=== PATIENT | female | born 1955 | race Caucasian/White ===

== ENCOUNTER 2017-01-29 16:08 | Observation (INO) | payer OTHER ==
[~2017-01-29] VITALS: Ht 157.5 cm; Wt 60.4 kg
[2017-01-29 17:16] VITALS: BP 104/62
[2017-01-29] MEDS ORDERED: SULINDAC150 MG PO (17:41)
[2017-01-29] MEDS ORDERED: BENAZEPRIL HYDR20 MG PO (17:42)
[2017-01-29] MEDS ORDERED: PROZAC 20MG CAP20 MG PO (17:43)
[2017-01-29] MEDS ORDERED: XYZAL5 MG PO (17:44)
[2017-01-29] MEDS ORDERED: SINGULAIR10 MG PO (17:45)
[2017-01-29] MEDS ORDERED: MOTRIN 600MG.600 MG PO (17:46)
[2017-01-29] MEDS ORDERED: VITAMIN D32000 UNI1 PO (17:47)
[2017-01-29] MEDS ORDERED: FLUTICASONE 50M16 GM (17:47)
--- NOTE | 2017-01-29 17:59 | CONSULT NOTE ---
Consultation findings: Referring physician: Dr. Carroll Date of examination: 01/29/17 Time of examination: 1725 Exam findings: The patient is a 61-year-old female who is a history of 2 weeks LEFT knee pain and swelling. She denies known history of injury. She denies history of diabetes and history of gout. She has had no previous problems with the knee and states that she has not had trauma of any recent origin. She has had a lesion on her LEFT lower leg frozen by a handcrew foreman some 2 years ago and has not seen a handcrew foreman in follow-up. There is erythema and scaliness around this lesion but no evidence of ascending cellulitis. She has had no other evidence of infection. She denies recurrent fever and chills but states that she has had one day where she did feel warmer and then colder. She's had no upper respiratory infections. She states she has had a Medrol Dosepak recently and felt improved with this but this "wore off" and her pain returned to baseline within the Medrol Dosepak was finished. She has had no injections and has had no antibiotics. She's had progressive difficulty with weightbearing. She presented to Dr. Carroll's office today and was sent for admission. She denies paresthesias/numbness/tingling and denies ecchymosis. She has had an effusion in the knee but no lymphedema. Examination shows a very limited range of motion secondary to pain. It is essentially 20 degrees to 45 degrees. The knee is roughly ligamentously stable but exam is quite limited secondary to her pain. There is a 3+ effusion but no areas of redness and warmth or cellulitis in the knee itself. There is a 2-3 cm diameter area of erythema associated with scaly desquamation and the lower LEFT leg in the area where the patient states a dermatologic lesion was frozen 2 years ago. No x-rays available. Under verbal consent, we have prepped the knee with alcohol and with Betadine and aspirated approximately 30 mL of fluid. The fluid is slightly turbid. No hemorrhagic aspirate is noted. It is submitted for culture, aerobic and anaerobic. It is also submitted for crystals, cell count, and stat Gram stain Impression: LEFT knee effusion questionable etiology Recommendations: At this point, the most likely diagnosis is an occult septic knee versus a gout attack. We will send the fluid for cultures, Gram stain, cell count, and crystals. These a been delivered to the lab by me and we hope to have results of Gram stain within around 30 minutes or so. We'll keep patient nothing by mouth until eliminate results are back. If the Gram stain is negative then I think is reasonable. We will place her on a regular diet if the Gram stain is positive, she would best be served by having a knee arthroscopy. at 1215
[2017-01-29 19:11] LABS: HEMOGLOBIN 11.9 g/dL (12.2-16.2); LYMPH # 1.8 K/mm3 (0.7-4.5); LYMPH % 15.5 % (10-50.0)
--- NOTE | 2017-01-29 19:19 | ACUTE CARE PROGRESS NOTE (QUA) ---
Progress Notes Subjective Date 01/29/17 Time 191 Note See H&P from [facility] office visit and admission. Left knee effusion and pain, near syncopal episode in office with only prep of the knee. Admitted. Tap of knee per Dr. Julio is more c/w gout than infection. (prior uric acid blood level was normal a month ago). Will cover with antibiotics, await culture, also treat with steroids. Objective Findings Last VS-Temp:97.7 B/P:104/62 Pulse:65 Resp:20 SaO2:99 ROOM AIR Last weight lbs:133 oz:2 K.384 Method:Bed Scales Assessment/Plan Problem List 1. Knee effusion, left 2. Gout 3. Septic joint of left knee joint 4. Near syncope Patient condition Stable Plan: make medication changes This inpt stay is expected to cross 2 MNs from start of care No at 1919
[2017-01-29 19:28] VITALS: BP 113/56
--- NOTE | 2017-01-29 19:29 | RADIOLOGY REPORT PS360 ---
CHEST(2 VIEWS-NOT PORTABLE) INDICATION: Elevated white count COMPARISON: PA and lateral chest 05/21/2009 FINDINGS: The lung singh are well expanded and appear clear of infiltrate. The cardiomediastinal silhouette and vascularity are normal. The costophrenic angles are clear. The bony thorax is normal. IMPRESSION: Normal chest.
[2017-01-29 20:00] VITALS: BP 113/56
[2017-01-30 04:10] VITALS: BP 127/70
--- NOTE | 2017-01-30 07:19 | PHARMACY CLINIC NOTE ---
Patient Demographics Patient Demographics Admission date: 01/29/17 Date: 01/30/17 Time: 718 Allergies Coded Allergies: No Known Drug Allergies (NKDA) (01/29/17) HEIGHT- FT: 5 IN: 2.00 K.384 VTE General Information Labs: Laboratory Tests 01/29 1800 Hematology Hgb (12.2 - 16.2 g/dL) 11.9 L Hct (37.0 - 47.0 %) 35.2 L Plt Count (142 - 424 K/mm3) 344 Disclaimer The following section includes nursing documentation that has been pulled in for pharmacy review. Patient's VTE score: 1 Patient's VTE Risk: VERY LOW RISK Clinical trial participant? No VTE prophylaxis NQF [id number] VTE prophylaxis ordered? Yes Type of prophylaxis/treatment: POLLY at 0719
[2017-01-30 07:24] VITALS: BP 127/56
--- NOTE | 2017-01-30 08:19 | ACUTE CARE PROGRESS NOTE (QUA) ---
Progress Notes Subjective Date 01/30/17 Time 0816 Note Pt states her knee pain has improved slightly today. pyrotechnics press tender on the medial side of the joint. Still swollen. No erythema. Has been applying heat. Slept a few hours last night. Objective Findings Last VS-Temp:98.7 B/P:127/56 Pulse:79 Resp:20 SaO2:96 ROOM AIR Last weight lbs:133 oz:2 K.384 Method:Bed Scales Laboratory Tests 01/29/17 1800: Sodium 139, Potassium 4.4, Chloride 102, Carbon Dioxide 30, BUN 17, Creatinine 0.8, Estimated Creat Clear 70, Estimated GFR (MDRD) 73, Glucose 85, Uric Acid 3.8, Calcium 8.8, Total Bilirubin 0.4, AST 17, ALT 34, Alkaline Phosphatase 78, Total Protein 6.8, Albumin 3.1 L, Globulin 3.7 H, Albumin/Globulin Ratio 0.8 L, TSH 1.69, WBC 11.9 H, RBC 3.84 L, Hgb 11.9 L, Hct 35.2 L, MCV 91.7, RDW 12.5, Plt Count 344, MPV 5.8 L, Gran % 79.0, Gran # 9.4 H, Lymphocytes % 15.5, Monocytes % 4.9, Eosinophils % 0.2, Basophils % 0.3, Lymphocytes # 1.8, Monocytes # 0.6, Eosinophils # 0.0, Basophils # 0.0, PUBS MCHC 33.7, ESR >120 H , MCH 30.9 Microbiology 01/29 1800 BLOOD: Anaerobic Blood Culture - RECD 01/29 1800 BLOOD: Aerobic Blood Culture - RECD 01/29 1800 BLOOD: Anaerobic Blood Culture - RECD 01/29 1800 BLOOD: Aerobic Blood Culture - RECD 01/29 1730 KNEE: Gram Stain - COMP 01/29 1730 KNEE: Antimicrobic Susceptibility - RECD 01/29 1730 KNEE: Anaerobic Culture Result 4 - RECD 01/29 1730 KNEE: Anaerobic Culture Result 3 - RECD 01/29 1730 KNEE: Anaerobic Culture Result 2 - RECD 01/29 1730 KNEE: Anaerobic Culture Result 1 - RECD 01/29 1730 KNEE: Anaerobic Culture - RECD 01/29 1730 KNEE: Body Fluid Culture - RECD Exam General appearance: alert, awake, no acute distress Cardiovascular: regular rate & rhythm Respiratory: clear to auscultation ABD: non-distended, normal bowel sounds, no rebound, soft, no tenderness, no guarding Extremities: no peripheral edema Musculoskeletal: left knee with k-pad in place, minimal edema, no erythema, ttp along the medial aspect of the joint Assessment/Plan Problem List 1. Knee effusion, left 2. Gout 3. Septic joint of left knee joint 4. Near syncope Plan: Still awaiting culture results. Will continue current treatment. This inpt stay is expected to cross 2 MNs from start of care No at 0819
[2017-01-30 09:00] VITALS: BP 127/56
[2017-01-30 09:32] LABS: HEMOGLOBIN 10.8 g/dL (12.2-16.2); LYMPH # 0.6 K/mm3 (0.7-4.5); LYMPH % 7.2 % (10-50.0)
[2017-01-30 10:14] LABS: NEUTROPHILS 91 % (42-76)
[2017-01-30 16:49] VITALS: BP 150/66
[2017-01-30 19:35] VITALS: BP 146/68
[2017-01-31 03:49] VITALS: BP 124/78
--- NOTE | 2017-01-31 08:01 | ACUTE CARE PROGRESS NOTE (QUA) ---
See Addendum Progress Notes Subjective Date 01/31/17 Time 0758 Note Pt states her knee is feeling better today. Less pain when walking. Less swelling. She rested well. Objective Findings Last VS-Temp:98.1 B/P:124/78 Pulse:68 Resp:20 SaO2:97 ROOM AIR Last weight lbs:133 oz:2 K.384 Method:Bed Scales Laboratory Tests 01/30/17 0918: WBC 8.4, RBC 3.49 L, Hgb 10.8 L, Hct 32.3 L, MCV 92.5, RDW 12.4, Plt Count 289, MPV 5.8 L, Gran % 91.7 H, Gran # 7.7, Total Counted 100, Lymphocytes % 7.2 L, Monocytes % 1.0 L, Eosinophils % 0.0 L, Basophils % 0.0 L, Neutrophils 91 H, Lymphocytes (Manual) 8 L, Lymphocytes # 0.6 L, Monocytes ( Manual) 1 L, Monocytes # 0.1, Eosinophils # 0.0, Basophils # 0.0, Platelet Estimate NORMAL, Anisocytosis 1+, PUBS MCHC 33.5, MCH 31.0 Exam General appearance: alert, awake, no acute distress Cardiovascular: regular rate & rhythm Respiratory: clear to auscultation ABD: non-distended, normal bowel sounds, no rebound, soft, no tenderness, no guarding Extremities: no peripheral edema Musculoskeletal: left knee with less edema, no erythema, still ttp along the medial aspect Assessment/Plan Problem List 1. Knee effusion, left 2. Gout 3. Septic joint of left knee joint 4. Near syncope Plan: Still awaiting cx results. Once these are back, can possibly be discharged home on oral abx. This inpt stay is expected to cross 2 MNs from start of care No at 0801 at 0848
[2017-01-31 08:44] VITALS: BP 146/72
--- NOTE | 2017-01-31 09:39 | ACUTE CARE PROGRESS NOTE ---
Progress note Date: 01/31/17 Assessment: Patient is awake alert no apparent distress. Knee effusion is resolving nicely. No erythema. Minimal pain. Moves knee with flexion and extension without pain. Aspirate from 29 January showed uric acid crystals and great abundance as well as a large number white blood cells. Initially a rare gram-positive cocci was reported but in conversation with the veterinary laboratory technician, this really appeared on only one or 2 singh and was almost reported as no gram-positive cocci seen. The tech felt confident in the reading but would have the slide over read by another tech in the morning. In the meantime, cultures and sensitivities that were submitted to have produced no growth to date[conversation with a forestry laborer [place] as of 09 on 31 January] Impression: 1. Knee effusion, left 2. Gout 3. Septic joint of left knee joint 4. Near syncope Plan: Clinically this appears to be gouty arthritis of the LEFT knee without laboratory evidence of a joint infection. Given the patient's clinical improvement and failure to grow in his symptoms., I think it would be reasonable to discontinue antibiotics at 48 hour point if no growth has occurred. at 0912
--- NOTE | 2017-01-31 09:39 | ACUTE CARE PROGRESS NOTE ---
Progress note Date: 01/31/17 Assessment: Patient is awake alert no apparent distress. Knee effusion is resolving nicely. No erythema. Minimal pain. Moves knee with flexion and extension without pain. Aspirate from 29 January showed uric acid crystals and great abundance as well as a large number white blood cells. Initially a rare gram-positive cocci was reported but in conversation with the mechanical laboratory technician, this really appeared on only one or 2 singh and was almost reported as no gram-positive cocci seen. The tech felt confident in the reading but would have the slide over read by another tech in the morning. In the meantime, cultures and sensitivities that were submitted to have produced no growth to date[conversation with a mechanical laboratory technician [place] as of 09 on 31 January] Impression: 1. Knee effusion, left 2. Gout 3. Septic joint of left knee joint 4. Near syncope Plan: Clinically this appears to be gouty arthritis of the LEFT knee without laboratory evidence of a joint infection. Given the patient's clinical improvement and failure to grow in his symptoms., I think it would be reasonable to discontinue antibiotics at 48 hour point if no growth has occurred. at 0968
--- NOTE | 2017-01-31 11:56 | RADIOLOGY REPORT PS360 ---
PROCEDURE: 2-D M-mode and color Doppler study INDICATIONS FOR THE TEST: Chest pain COPD Heart Murmur Tobacco Smoking Palpitations Fatigue SyncopeX Edema HypertensionXDiabetes Mellitus Rheumatic Fever SOB GARRETT Obesity Hyperlipidemia Family History HD Additional History PATIENT INFORMATION HEIGHT: 61 WEIGHT:133 GENDER: Female B/P:104/62 2-D/M-MODE INTERPRETATION: 2-D MEASUREMENTS OBSERVED VALUES IN CMS Right Ventricular Dimension (RVDd) 1.4 Interventricular Septum (Thickness)(IVsd) 1.0 Left Ventricular Internal Dimensions(LVIDd) 5.2 Left Ventricular Posterior Wall (Thickness)(LVPWd) .8 Aortic Root 3.0 Aortic Cusp Separation 2.0 Left Atrial Dimensions (LAD) 3.3 2D 1. Left atrium is qualitatively mildly enlarged, left ventricle is normal size, there is mild concentric left ventricular hypertrophy present, visually estimated ejection fraction 55% with no obvious regional wall motion abnormality. 2. The right atrium and right ventricle are normal size and contractility. 3. The aortic valve is minimally thickened and calcified there is no aortic stenosis. 4. The mitral valve leaflets are minimally thickened, there is no mitral stenosis. 5. The tricuspid valve is structurally normal. 6. The pulmonic valve is not well visualized. 7. No significant pericardial effusion noted. DOPPLER INTERROGATION: Doppler interrogation of the aortic mitral and tricuspid valvular presence of mild mitral and tricuspid regurgitation, tricuspid regurgitant jet velocity insufficient for calculation of the right ventricular systolic pressure, grade 1 diastolic dysfunction seen without tissue Doppler evidence of raised left atrial pressure. CONCLUSION: 1. Mildly enlarged left atrium, normal left ventricular size, mild concentric left ventricular hypertrophy present, visually estimated ejection fraction 55% with no obvious regional wall motion abnormality, grade 1 diastolic dysfunction seen without Doppler evidence of raised left atrial pressure. 2. Mild mitral and tricuspid regurgitation. 3. No significant pericardial effusion noted.
[2017-01-31] MEDS ORDERED: COLCRYS0.6 M1 PO (16:39)
[2017-01-31] MEDS ORDERED: OMNICEF 300 MG300 MG PO (16:40)
[2017-01-31 18:14] VITALS: BP 146/72
[2017-02-01 13:55] LABS: BODY FLUID POLY 91 %; BODY FLUID RBC 10000 /mm3; BODY FLUID WBC 10500 MM
[2017-02-01 13:56] LABS: BODY FLUID MONONUCLEAR 4 %
--- NOTE | 2017-02-05 14:39 | DISCHARGE SUMMARY STANDARD ---
Discharge Summary ([facility]) Date of admission: 01/29/17 Date of discharge: 01/31/17 Problem List: 1. Knee effusion, left 2. Gout 3. Septic joint of left knee joint 4. Near syncope History of present illness: Ms Hong is a 61 year old female with a history of HTN and depression who presented to the office of [facility] on 01/29/17 with severe knee pain. She had tried ice and elevation with no improvement. She was having difficulty walking and sleeping. Dr. Carroll suggested to the patient that he tap her knee to sample the effusion and possibly give her a steroid injection. As the knee was being prepped the patient became anxious, pale and diaphoretic. CBC revealed a WBC of 13.8 with a left shift suggesting a possible septic joint. The patient was then admitted with an orthopedic referral. Exam on admission: General Appearance: NAD HEENT: unremarkable Oral cavity: no lesions; mucosa moist and WNL; no erythema. NECK: supple; no LAD. Chest: Normal shape and expansion. Heart: sinus bradycardia; HR 60 Lungs: CTA. Abdomen: soft and NT; no OM or mass. Neuro: Intact, gait normal. Skin: Pale and diaphoretic; nummular lesion 2.5cm, left lower leg, pretibial area with excoriation. Back: normal. Extremities: Peripheral pulses intact and equal.; left knee is more swollen than noted previously; not inflamed, but tender. Hospital Course: Patient was seen by Dr. Julio on admission. He performed a knee aspiration and submitted fluid for culture, aerobic and anaerobic. It was also submitted for crystals, cell count, and stat Gram stain At this point, the most likely diagnosis was felt to be an occult septic knee versus a gout attack. Knee was slightly better after the procedure; patient kept heat on it. Colchicine was added. The knee did improve with less swelling and walking was easier. On 01/31/17 she was ready for discharge. Cultures at the time remained negative. She was discharged to home. Laboratory data this visit: 01/29/17 1800: Sodium 139, Potassium 4.4, Chloride 102, Carbon Dioxide 30, BUN 17, Creatinine 0.8, Estimated Creat Clear 70, Estimated GFR (MDRD) 73, Glucose 85, Uric Acid 3.8, Calcium 8.8, Total Bilirubin 0.4, AST 17, ALT 34, Alkaline Phosphatase 78, Total Protein 6.8, Albumin 3.1 L, Globulin 3.7 H, Albumin/Globulin Ratio 0.8 L, TSH 1.69, WBC 11.9 H, RBC 3.84 L, Hgb 11.9 L, Hct 35.2 L, MCV 91.7, RDW 12.5, Plt Count 344, MPV 5.8 L, Gran % 79.0, Gran # 9.4 H, Lymphocytes % 15.5, Monocytes % 4.9, Eosinophils % 0.2, Basophils % 0.3, Lymphocytes # 1.8, Monocytes # 0.6, Eosinophils # 0.0, Basophils # 0.0, PUBS MCHC 33.7, ESR >120 H , MCH 30.9 01/30/17 0918: WBC 8.4, RBC 3.49 L, Hgb 10.8 L, Hct 32.3 L, MCV 92.5, RDW 12.4, Plt Count 289, MPV 5.8 L, Gran % 91.7 H, Gran # 7.7, Total Counted 100, Lymphocytes % 7.2 L, Monocytes % 1.0 L, Eosinophils % 0.0 L, Basophils % 0.0 L, Neutrophils 91 H, Lymphocytes (Manual) 8 L, Lymphocytes # 0.6 L, Monocytes ( Manual) 1 L, Monocytes # 0.1, Eosinophils # 0.0, Basophils # 0.0, Platelet Estimate NORMAL, Anisocytosis 1+, PUBS MCHC 33.5, MCH 31.0 Procedure Result Verified Site > BLOOD CULTURE AEROBIC Final 02/03/17 NO GROWTH AT 5 DAYS > BLOOD CULTURE ANAEROBIC Final 02/03/17 NO GROWTH AT 5 DAYS Imaging: CXR 01/29/17 IMPRESSION: Normal chest. ECHO 01/30/17 CONCLUSION: 1. Mildly enlarged left atrium, normal left ventricular size, mild concentric left ventricular hypertrophy present, visually estimated ejection fraction 55% with no obvious regional wall motion abnormality, grade 1 diastolic dysfunction seen without Doppler evidence of raised left atrial pressure. 2. Mild mitral and tricuspid regurgitation. 3. No significant pericardial effusion noted. Discharge medications: Stop taking the following medications: IBUPROFEN (Motrin 600MG) 600 MG TABLET ORAL THREE TIMES A DAY NEEDED as needed for ARTHITIS PAIN Continue taking these medications: Sulindac (Sulindac) 150 MG TABLET 150 MILLIGRAM ORAL TWICE A DAY Benazepril Hcl (Benazepril HCl) 20 MG TABLET 20 MILLIGRAM ORAL DAILY Fluoxetine Hcl (Prozac 20MG Capsule(Generic)) 20 MG CAPSULE 20 MILLIGRAM ORAL DAILY LEVOCETIRIZINE DIHYDROCHLORIDE (Xyzal) 5 MG TABLET 5 MILLIGRAM ORAL DAILY Montelukast Sodium (Singulair) 10 MG TABLET 10 MILLIGRAM ORAL QDPM FLUTICASONE PROPIONATE (Fluticasone 50MCG Nasal [place]) 16 GM SPRAY.SUSP 1 SPRAY Nasal DAILY Cholecalciferol (Vitamin D3) (Vitamin D3) 2,000 UNIT TABLET 4,000 UNIT ORAL DAILY Start taking the following new medications: Colchicine (Colcrys 0.6MG) 0.6 MG TABLET 0.6 MILLIGRAM ORAL TWICE A DAY Qty = 60 No Refills CEFDINIR (Cefdinir) 300 MG CAPSULE 300 MILLIGRAM ORAL TWICE A DAY Qty = 20 No Refills Disposition: Discharged to home in stable and satisfactory condition. Meds as per reconciliation sheet. To continue with same diet and limited activity level. To FU with Dr. Carroll in 5 days at 4926
== END 2017-01-31 18:00 | disposition home or self-care (01) ==
LOC: 2ND 16:08
PROVIDERS: Family Medicine; Orthopaedic Surgery
PROC: 0S9D3ZZ Drainage of Left Knee Joint, Percutaneous Approach (ICD-10-PCS; principal; 2017-01-29)
DX: M25.462 Effusion, left knee (principal); R26.2 Difficulty in walking, not elsewhere classified; M10.9 Gout, unspecified; I10 Essential (primary) hypertension; M00.9 Pyogenic arthritis, unspecified
CPT/HCPCS: G0378